=== PATIENT | male | born 1980 | race Two or more races ===

== ENCOUNTER 2018-01-11 18:07 | Inpatient (IN) | payer OTHER ==
[~2018-01-11] VITALS: Ht 170.2 cm; Wt 113.0 kg
[2018-01-12 02:51] VITALS: BP 130/77
[2018-01-12 07:52] VITALS: BP 152/84
[2018-01-12] MEDS ORDERED: COGENTIN1 MG PO (07:56)
[2018-01-12] MEDS ORDERED: DEPAKOTE500 MG PO (07:57)
[2018-01-12] MEDS ORDERED: RISPERDAL1 MG PO (07:58)
[2018-01-12] MEDS ORDERED: ATIVAN0.5 MG PO (07:58)
[2018-01-12 11:53] VITALS: BP 134/64
[2018-01-12 16:26] VITALS: BP 149/90
[2018-01-13 08:00] VITALS: BP 110/58
[2018-01-13 14:39] VITALS: BP 140/81
[2018-01-14 07:31] VITALS: BP 117/68
[2018-01-14 15:12] VITALS: BP 114/59
[2018-01-15 07:37] VITALS: BP 132/78
[2018-01-15 15:11] VITALS: BP 145/84
[2018-01-16 08:05] VITALS: BP 143/95
[2018-01-16 12:00] VITALS: BP 140/82
[2018-01-16 16:02] VITALS: BP 138/86
[2018-01-17 07:57] VITALS: BP 119/65
[2018-01-17 16:09] VITALS: BP 105/57
[2018-01-18 07:47] VITALS: BP 130/65
[2018-01-18 16:14] VITALS: BP 166/87
[2018-01-18 19:24] VITALS: BP 136/67
[2018-01-19 09:41] VITALS: BP 116/82
[2018-01-19 16:39] VITALS: BP 139/78
[2018-01-20 07:59] VITALS: BP 113/65
[2018-01-20 16:12] VITALS: BP 125/71
[2018-01-21 07:24] VITALS: BP 142/73
[2018-01-21 16:50] VITALS: BP 105/55
[2018-01-22 08:30] VITALS: BP 134/74
[2018-01-22 15:32] VITALS: BP 133/77
[2018-01-23 16:38] VITALS: BP 162/77
[2018-01-24 08:06] VITALS: BP 122/71
[2018-01-24 12:27] LABS: BASOPHIL (%) 0.6 % (0-1); BASOPHIL COUNT 0.1 K/uL (0-0.1); EOSINOPHIL (%) 2.7 % (0-5); EOSINOPHIL COUNT 0.2 K/uL (0-0.3); HEMATOCRIT 43.2 % (38.0-50.0); HEMOGLOBIN 14.4 G/DL (12.5-16.6); IMMATURE GRANULOCYTE (%) 0.6 % (0.0-0.7); LYMPHOCYTE (%) 39.8 % (15-42); LYMPHOCYTE COUNT 3.3 K/uL (1.0-2.8); MCH 29.7 PG (29.0-34.0); MCHC 33.3 G/DL (30.0-36.0); MCV 89.1 FL (86-99); MONOCYTE (%) 7.9 % (3-12); MONOCYTE COUNT 0.7 K/uL (0-0.8); NEUTROPHIL (%) 48.4 % (45-76); NEUTROPHIL COUNT 4.1 K/uL (1.8-6.4); PLATELET COUNT 193 K/uL (156-360); RBC DIS.WIDTH-CV 13.2 % (11.8-14.6); RBC DIS.WIDTH-SD 42.9 % (39-53); RED BLOOD COUNT 4.85 M/uL (4.00-5.50); WHITE BLOOD COUNT 8.4 K/uL (4.1-10.2)
[2018-01-24 16:05] VITALS: BP 129/83
[2018-01-25 07:56] VITALS: BP 112/70
[2018-01-25 16:15] VITALS: BP 124/77
[2018-01-26 08:20] VITALS: BP 115/55
[2018-01-26 15:18] VITALS: BP 124/68
[2018-01-27 08:02] VITALS: BP 103/52
[2018-01-27 17:02] VITALS: BP 115/65
[2018-01-28 07:40] VITALS: BP 127/71
[2018-01-28 14:55] VITALS: BP 137/84
[2018-01-29 07:31] VITALS: BP 140/78
[2018-01-29 15:09] VITALS: BP 143/64
[2018-01-30 07:49] VITALS: BP 137/79
[2018-01-30 16:20] VITALS: BP 142/81
[2018-01-31 06:29] LABS: BASOPHIL (%) 0.5 % (0-1); EOSINOPHIL (%) 3.9 % (0-5); EOSINOPHIL COUNT 0.3 K/uL (0-0.3); HEMATOCRIT 43.2 % (38.0-50.0); HEMOGLOBIN 14.4 G/DL (12.5-16.6); IMMATURE GRANULOCYTE (%) 0.4 % (0.0-0.7); LYMPHOCYTE (%) 51.2 % (15-42); LYMPHOCYTE COUNT 4.2 K/uL (1.0-2.8); MCH 29.3 PG (29.0-34.0); MCHC 33.3 G/DL (30.0-36.0); MONOCYTE (%) 9.2 % (3-12); MONOCYTE COUNT 0.8 K/uL (0-0.8); NEUTROPHIL (%) 34.8 % (45-76); NEUTROPHIL COUNT 2.9 K/uL (1.8-6.4); PLATELET COUNT 198 K/uL (156-360); RBC DIS.WIDTH-CV 12.9 % (11.8-14.6); RBC DIS.WIDTH-SD 41.6 % (39-53); RED BLOOD COUNT 4.91 M/uL (4.00-5.50); WHITE BLOOD COUNT 8.2 K/uL (4.1-10.2)
[2018-01-31 07:33] VITALS: BP 111/67
[2018-01-31 16:08] VITALS: BP 127/85
[2018-02-01 07:40] VITALS: BP 127/68
[2018-02-01 16:25] VITALS: BP 139/74
[2018-02-02 07:58] VITALS: BP 129/72
[2018-02-02 16:08] VITALS: BP 145/96
[2018-02-03 07:49] VITALS: BP 135/77
[2018-02-03 16:20] VITALS: BP 146/70
[2018-02-04 08:29] VITALS: BP 119/64
[2018-02-04 15:57] VITALS: BP 137/73
[2018-02-05 08:24] VITALS: BP 104/68
[2018-02-05 16:48] VITALS: BP 139/82
[2018-02-06 07:48] VITALS: BP 113/66
[2018-02-06 16:46] VITALS: BP 146/78
[2018-02-07 07:49] VITALS: BP 135/63
[2018-02-07 09:16] LABS: BASOPHIL (%) 0.7 % (0-1); BASOPHIL COUNT 0.1 K/uL (0-0.1); EOSINOPHIL (%) 4.6 % (0-5); EOSINOPHIL COUNT 0.4 K/uL (0-0.3); HEMATOCRIT 42.6 % (38.0-50.0); IMMATURE GRANULOCYTE (%) 0.5 % (0.0-0.7); LYMPHOCYTE (%) 37.9 % (15-42); LYMPHOCYTE COUNT 3.5 K/uL (1.0-2.8); MCH 29.1 PG (29.0-34.0); MCHC 32.9 G/DL (30.0-36.0); MCV 88.6 FL (86-99); MONOCYTE (%) 6.5 % (3-12); MONOCYTE COUNT 0.6 K/uL (0-0.8); NEUTROPHIL (%) 49.8 % (45-76); NEUTROPHIL COUNT 4.6 K/uL (1.8-6.4); PLATELET COUNT 212 K/uL (156-360); RBC DIS.WIDTH-CV 13.1 % (11.8-14.6); RBC DIS.WIDTH-SD 42.7 % (39-53); RED BLOOD COUNT 4.81 M/uL (4.00-5.50); WHITE BLOOD COUNT 9.2 K/uL (4.1-10.2)
[2018-02-07] MEDS ORDERED: DIVALPROEX SOD500 MG PO ×2 (09:55)
[2018-02-07] MEDS ORDERED: CLOZAPINE100 MG PO (09:55)
[2018-02-07] MEDS ORDERED: CLOZAPINE25 MG PO (09:55)
== END 2018-02-07 11:22 | disposition home or self-care (01) | DRG 885 ==
LOC: 1WEST 18:07 → ENRESERV 18:08 → 1WEST 01-12 02:37 → 2SOUTH 02-04 14:05 → 1WEST 02-04 14:06
PROVIDERS: Psychiatry & Neurology Psychiatry
DX: F25.0 Schizoaffective disorder, bipolar type (principal); E66.9 Obesity, unspecified; Z68.38 Body mass index [BMI] 38.0-38.9, adult; Z91.14 Patient's other noncompliance with medication regimen
CPT/HCPCS: 80164; 85025; 97150 GO; 97165 GO; J2794